=== PATIENT | female | born 1950 | race Caucasian/White ===

== ENCOUNTER → 2017-07-12 | Outpatient (CLI) | payer MEDICARE, MEDICAID ==
[~2017-07-12] MED LIST: BUTA-91; ESTROGEN; HCTZ; HYDR-1421; KCL; SOMA; XANEX
[2017-07-12 14:36] LABS: Basophils # (auto) 0 uL; Basophils % (auto) 0.9 % (0.0-2.0); Eosinophils # (auto) 0.1 uL; Hematocrit 41.1 % (36.0-46.0); Hemoglobin 13.7 g/dL (12.2-16.2); Lymphocytes # (auto) 2.3 uL; Lymphocytes % (auto) 42.7 % (10.0-50.0); Mean Corpuscular Hemoglobin 31.4 pg (28.0-32.0); Mean Corpuscular Hgb Conc. 33.3 g/dL (32.0-36.0); Mean Corpuscular Volume 94.3 fL (80.0-100.0); Monocytes # (auto) 0.4 uL; Neutrophils # (auto) 2.5 uL; Neutrophils % (auto) 46.4 % (37.0-80.0); Nucleated Red Blood Cells % 0.1 %; Platelet Count (auto) 246 10^3/uL (140-450); Red Blood Cells 4.35 10^6/uL (4.0-5.20); Red Cell Distribution Width 14.3 % (11.8-14.3); White Blood Cell 5.4 10^3/uL (4.4-10.8)
[2017-07-12 14:56] LABS: INR 0.92 (0.9-1.15); Partial Thromboplastin Time 25.4 sec (22.64-33.71)
[2017-07-12 15:02] LABS: Urine Bacteria NONE SEEN /hpf (None Seen); Urine Blood Negative /uL (Negative); Urine Mucus FEW (None Seen); Urine Specific Gravity 1.026 (1.001-1.035); Urine WBC 3 /hpf (0 - 5)
[2017-07-12 15:11] LABS: BUN/Creatinine Ratio 21.1; Bilirubin, Total 0.5 mg/dL (0.2-1.0); Calcium 9.2 mg/dL (8.5-10.1); Potassium 3.6 mmol/L (3.5-5.1); Total Protein 7.8 g/dL (6.4-8.2)
== END | disposition home or self-care (01) ==
LOC: LAB 13:20
PROVIDERS: ATTEND Orthopaedic Surgery
DX: S83.251A Bucket-handle tear of lateral meniscus, current injury, right knee, initial encounter (principal); Z79.01 Long term (current) use of anticoagulants; X58.XXXA Exposure to other specified factors, initial encounter; Y93.89 Activity, other specified; Y92.89 Other specified places as the place of occurrence of the external cause; Y99.8 Other external cause status
CPT/HCPCS: 36415; 80053; 81001; 85025; 85610; 85730

== ENCOUNTER 2019-01-24 12:20 | Day surgery (SDC) | payer MEDICARE, MEDICAID ==
[2019-01-21 11:19] LABS: Basophils # (auto) 0.1 uL; Basophils % (auto) 0.5 % (0.0-2.0); Eosinophils # (auto) 0 uL; Eosinophils % (auto) 0.2 % (0.0-7.0); Hematocrit 49.8 % (36.0-46.0); Hemoglobin 16.4 g/dL (12.2-16.2); Lymphocytes # (auto) 3.4 uL; Mean Corpuscular Hemoglobin 31.5 pg (28.0-32.0); Mean Corpuscular Volume 95.5 fL (80.0-100.0); Monocytes # (auto) 0.9 uL; Monocytes % (auto) 6.3 % (0.0-12.0); Neutrophils # (auto) 9.8 uL; Nucleated Red Blood Cells % 0.1 %; Platelet Count (auto) 279 10^3/uL (140-450); Red Blood Cells 5.21 10^6/uL (4.0-5.20); Red Cell Distribution Width 14.4 % (11.8-14.3); Urine Bacteria NONE SEEN /hpf (None Seen); Urine Blood Negative /uL (Negative); Urine Specific Gravity 1.007 (1.001-1.035); Urine WBC 9 /hpf (0 - 5); White Blood Cell 14.3 10^3/uL (4.4-10.8)
[2019-01-21 11:29] LABS: INR 0.87 (0.9-1.15); Partial Thromboplastin Time 20.9 sec (23.64-32.05)
[2019-01-21 11:34] LABS: Potassium 3.5 mmol/L (3.5-5.1)
[2019-01-21 11:48] LABS: BUN/Creatinine Ratio 10.8; Bilirubin, Total 0.5 mg/dL (0.2-1.0); Calcium 9.1 mg/dL (8.5-10.1); Total Protein 7.9 g/dL (6.4-8.2)
[~2019-01-24] VITALS: Ht 167.6 cm; Wt 74.8 kg
[~2019-01-24 12:20] MED LIST changes: -BUTA-91; +CARI350T22 PO; -ESTROGEN; -HCTZ; -HYDR-1421; +HYDR-531 PO; +HYDR12.56 PO; -KCL; +LEVO100T8 PO; +LIDO5DIS21 TOP; +MECL-87 PO; +MEDR10TA9 PO; +PANT40TA2 PO; +POTA20TA53 PO; +PRE5T PO; +RIZA10TA22 OR; +SIMV-8 PO; -SOMA; +TEMA30CA PO; +VITA1CAP15 PO; -XANEX
[2019-01-24] MEDS ORDERED: fentaNYL CITRATE 100 MCG/2 ML VL ONE (13:03)
[2019-01-24] MEDS ORDERED: BUPIVACAINE 0.25% INJ 50ML VIAL ONE ×2 (13:03→14:41)
[2019-01-24] MEDS ORDERED: HYDROCORTISONE SOD SUCC 100 MG/2ML INJ VIAL ONE (13:03)
[2019-01-24] MEDS ORDERED: LIDOCAINE HCL 2% TOP JELLY 5ML TOP ONE ×2 (13:03→14:08)
[2019-01-24] MEDS ORDERED: SODIUM CHLORIDE LOCK 10 ML ONE (13:03)
[2019-01-24] MEDS ORDERED: fentaNYL CITRATE 10 ML ONE (13:03)
[2019-01-24] MEDS ORDERED: MIDAZOLAM HCL 1MG/1ML-2 ML VIAL ONE (13:03)
[2019-01-24] MEDS ORDERED: LIDOCAINE 1% HCL (LOCAL ANESTH.) INJ 20ML MDV ONE (13:03)
[2019-01-24] MEDS ORDERED: ONDANSETRON HCL 4 MG/2 ML VIAL ONE (13:03)
[2019-01-24] MEDS ORDERED: PROPOFOL 10 MG/ML 20 ML IV ONE (13:03)
[2019-01-24] MEDS ORDERED: ROCURONIUM 10MG/ML 10ML VIAL IV ONE (13:03)
[2019-01-24] MEDS ORDERED: LIDOCAINE W/ EPINEPHRINE 1% 20ML VIAL ONE ×2 (13:05→14:41)
[2019-01-24] MEDS ORDERED: ceFAZolin 1GM/50ML 100 ML IV ONE (13:11)
[2019-01-24] MEDS ORDERED: HYDROmorphone HCL 2 MG/ML VL IV ONE (13:20)
[2019-01-24] MEDS ORDERED: ONDANSETRON HCL 4 MG/2 ML VIAL IV PRN (13:45)
[2019-01-24] MEDS ORDERED: GLYCOPYRROLATE 0.2 MG/ML 1ML VIAL ONE (14:07)
[2019-01-24] MEDS ORDERED: NEOSTIGMINE 1 MG/ML INJ (10mg/10ML VIAL) ONE (14:07)
[2019-01-24] MEDS ORDERED: CONJ ESTROGENS 0.625MG/GM VAG CRM 30GM PV ONE (14:28)
[2019-01-24] MEDS ORDERED: hydrALAZINE HCL 20 MG/ML VL ONE (15:08)
[2019-01-24] MEDS ORDERED: ACETAMINOPHEN IV 100 ML IV ONE (15:26)
[2019-01-24] MEDS ORDERED: ACETAMINOPHEN IV 1000 MG/100ML (10MG/ML) IV ONE (15:30)
[2019-01-24] MEDS ORDERED: METOCLOPRAMIDE HCL 5MG/ml INJ 2ml VIAL IV ONE (15:30)
[2019-01-24] MEDS: HYDROmorphone HCL 2 MG/ML VL IV PRN ×4 (15:35→16:17)
[2019-01-24 16:10] VITALS: BP 119/73
== END 2019-01-24 16:45 | disposition home or self-care (01) ==
LOC: SUR 12:20
PROVIDERS: ATTEND Obstetrics & Gynecology
DX: N81.11 Cystocele, midline (principal); N39.3 Stress incontinence (female) (male); N95.2 Postmenopausal atrophic vaginitis; D53.8 Other specified nutritional anemias; E78.5 Hyperlipidemia, unspecified; K21.9 Gastro-esophageal reflux disease without esophagitis; I97.3 Postprocedural hypertension; F41.9 Anxiety disorder, unspecified; F32.9 Major depressive disorder, single episode, unspecified; M79.7 Fibromyalgia; I12.9 Hypertensive chronic kidney disease with stage 1 through stage 4 chronic kidney disease, or unspecified chronic kidney disease; N18.3 Chronic kidney disease, stage 3 (moderate); G89.29 Other chronic pain; E03.9 Hypothyroidism, unspecified; F17.200 Nicotine dependence, unspecified, uncomplicated; Z88.1 Allergy status to other antibiotic agents; Z79.899 Other long term (current) drug therapy; Z90.710 Acquired absence of both cervix and uterus; Z98.890 Other specified postprocedural states; Z80.9 Family history of malignant neoplasm, unspecified; Z88.8 Allergy status to other drugs, medicaments and biological substances
CPT/HCPCS: 36415; 57240; 57288; 58660; 80053; 81001; 85025; 85610; 85730; 86850; 86900; 86901; 87086; 88305; 88342; C1763; J0131; J0360; J0690; J1170; J1720; J2250; J2405; J2704; J3010; J3490; J7030; J2001

== ENCOUNTER 2024-12-10 10:16 | Inpatient (IN) | payer MEDICARE, MEDICAID ==
[~2024-12-10] VITALS: Ht 165.1 cm; Wt 66.4 kg
[~2024-12-10 10:16] MED LIST changes: +ACET500T58 PO; +ALPR0.254 PO; -CARI350T22 PO; +CLON0.1T PO; +CYCL-839 PO; -HYDR12.56 PO; +HYDR25TA4 PO; +IBUP-1456 PO; -LEVO100T8 PO; -LIDO5DIS21 TOP; +MAGN400C3 PO; -MECL-87 PO; -MEDR10TA9 PO; +MULT1TAB95 PO; -PANT40TA2 PO; -POTA20TA53 PO; -PRE5T PO; +SEMA0.25 SC; -SIMV-8 PO; -TEMA30CA PO; +TRAZ-181 PO; -VITA1CAP15 PO
[2024-12-10] MEDS: ceFAZolin 2 GM/D5W50ml 50 ML IV ONE (10:18)
[2024-12-10] MEDS: TRANEXAMIC ACID 20 ML ONE (10:29)
[2024-12-10] MEDS: ACETAMINOPHEN IV 100 ML IV ONE (10:30)
[2024-12-10] MEDS: CEFEPIME 1GM/ 50ML 50 ML IV ONE (10:32)
[2024-12-10] MEDS: BUPIVACAINE W/ EPINEPH 0.5% MPF 30ML VIAL IJ ONE (10:40)
[2024-12-10] MEDS ORDERED: fentaNYL CITRATE 100 MCG/2 ML VL ONE ×2 (10:44→12:04)
[2024-12-10] MEDS ORDERED: PROPOFOL 10 MG/ML 20 ML IV ONE (10:45)
[2024-12-10] MEDS ORDERED: MIDAZOLAM HCL 2MG/2ML 2ml VIAL (1mg/ml) ONE (10:45)
[2024-12-10] MEDS ORDERED: MORPHINE SULF PF 5 MG/10 ML VIAL ONE (10:45)
[2024-12-10] MEDS ORDERED: ONDANSETRON HCL 4 MG/2 ML VIAL ONE (10:45)
[2024-12-10] MEDS ORDERED: LIDOCAINE 2% (LOCAL ANESTH.) PF 5ml SDV ONE (10:45)
[2024-12-10] MEDS ORDERED: HYDROmorphone HCL 2 MG/ML VL/or syr ONE ×2 (11:53→13:30)
[2024-12-10] MEDS ORDERED: KETAMINE 50mg/ML 1ml syringe ONE (12:51)
[2024-12-10] MEDS: VANCOMYCIN HCL 1000 MG VL ONE (12:51)
[2024-12-10] MEDS ORDERED: NEOSTIGMINE 1 MG/ML INJ (10mg/10ML VIAL) ONE (13:13)
[2024-12-10] MEDS ORDERED: GLYCOPYRROLATE 0.2 MG/ML 1ML VIAL ONE (13:13)
--- NOTE | 2024-12-10 13:16 | DVHOP2 ---
Operative Report - 2 Report Details Date: 12/10/24 Preop Diagnosis: Left knee degenerative arthritis Postop Diagnosis: Left knee degenerative arthritis Surgeon: Roxana De Los Santos MD Milk Vendor: Frances MANNING Anesthesiologist: Mallorie WATSON Anesthesia: General, Regional Drains: Alf closed wound suction Implant: DonJoy knee size six femur PS, size five tibial base plate, size 13 polyethylene, size 32 patella Consent: The patient was informed of the risks and benefits of the procedure. These include but are not limited to complications of anesthesia, postoperative infection, incomplete relief of symptoms, recurrence of symptoms, damage to blood vessels, nerves and tendons, deep venous thrombosis, pulmonary embolism and possible need for repeat surgery in the future. Complications: None Estimated Blood Loss: 50 cc Fluids: See anesthesia record Findings: Left knee denuded cartilage with eburnated bone, osteophytes, valgus deformity Indications for Surgery: Left knee degenerative arthritis with severe pain and functional impairment despite nonoperative management Name of Procedure Performed Left total knee arthroplasty Procedure Details Procedure Details: The patient was brought to the operating room and placed on the table in the supine position after being given spinal anesthetic with adequate analgesia obtained. Surgical timeout was performed verifying patient, laterality and procedure Preop patient received IV cefepime IV Ancef and IV tranexamic acid. Tourniquet was applied to the lower extremity. Extremity was elevated, exsanguinated Esmarch, and tourniquet inflated. Lower extremity was prepped and draped in sterile fashion. Midline incision was made followed by medial arthrotomy. I exposed the anterior medial and lateral tibial plateau and the anterior distal femur. Bovie and aqua mantis were used for hemostasis. I excised the anterior meniscal tissue with Bovie. I excised a portion of the fat pad with Bovie. The patella was everted and the knee flexed. I drilled the distal femur and suctioned the hole to reduce the risk of fat emboli. I inserted intramedullary guide with 6 degree valgus setting. I pinned the distal femoral cutting block anteriorly. Intramedullary geoffrey was removed. Distal femoral cut was made and the block removed. I brought my attention to the tibia setting up the external cutting jig for the tibia paying attention to slope, rotation and varus valgus alignment. I set the depth and pinned the block. I used the external alignment geoffrey to aid in checking alignment. Bone cut was made and bone removed releasing soft tissue attachments with Bovie. Cutting block removed. I then checked the extension gap and deemed adequate and removed the femur and tibia pins. I flexed the knee and applied the femoral sizing guide to the femur. I checked the size and external rotation setting at 90 degrees to Whitesides line and checking the epicondylar axis. I drilled the holes then removed the sizing guide and pin. I then tapped on the 4 in 1 cutting block and checked with the mariah wing anteriorly to make sure that I would not notch then pinned the block. Cuts were made and the block and pins were removed. Bone was removed with curved osteotome. I used a rongeur to remove any remaining osteophytes at the femur and tibia. I then used a lamina signal repairer to open up the back alternating between the medial and lateral side. Any remaining meniscal tissue was excised with scalpel. I used curved osteotome, curette and rongeur to remove any posterior osteophytes. I prophylactically coagulated with aqua mantis. I then tapped on the template for the box cut and pinned it. Box cut was made and bone removed. Template and pin removed. I then tapped on the femoral trial. I then brought my attention back to the tibia sizing it. I used the external alignment geoffrey to make sure that rotation and alignment were good. I made a Bovie virginie at the tibial tray virginie identifying rotation for later use. I tried various tibial polytrials. [I then brought my attention to the patella. I sequentially dissected soft tissue with Bovie. I checked the thickness with caliper. I set the appropriate depth of cut on the cutting guide. I attached the cutting guide made my cut. I then sized the patella and made my drill holes. I then placed the patella trial with appropriate depth based on overall precut thickness. ] The patella tracked nicely without thumb pressure. I removed the trials. I pinned the tray and used the reamer and keel punch. The implants were brought into the field while bone preparation was started. I used both normal saline irrigation to prepare the bone. Once cement was ready I applied cement to the tibial implant and tibial bone tapped it on and removed excess cement in usual fashion. In similar fashion I tapped on the femoral implant. I inserted the trial polyethylene and brought the knee into 30 degrees flexion. [I then applied the patella implant in similar fashion holding pressure with the pressurization device.] I irrigated with xperience i rrigant. Once cement cured, I checked stability and range of motion as well as patella tracking. tourniquet was released and hemostasis maintained with aqua mantis. I inserted the polyethylene and again checked stability. I used a 2 grams of vancomycin half of which was placed deep and half superficial. I repaired the extensor mechanism with the knee in flexion with #1 Ethibond interrupted [id number]. Deep subcutaneous tissue was closed with 0 Vicryl. Superficial subcutaneous tissue was closed with 2-0 vicryl interrupted. Skin was closed with mirella. I then applied the [alf closed wound suction]. Patient tolerated the procedure well and was brought to recovery room in stable condition. Condition Stable Disposition Still a Patient ROXANA DE LOS SANTOS MD Dec 10, 2024 13:16
[2024-12-10 13:26] VITALS: O2SAT 100
[2024-12-10] MEDS ORDERED: RIZATRIPTAN BENZOATE 10 MG SL PRN (13:30)
[2024-12-10] MEDS ORDERED: D5W/LACTATED RINGERS 1,000 ML IV SCH (13:30)
[2024-12-10] MEDS ORDERED: ACETAMINOPHEN 325 MG TAB PO PRN (13:30)
[2024-12-10] MEDS: oxyCODONE HCL 5MG TAB PO PRN ×2 (13:45→18:29)
[2024-12-10] MEDS: ceFAZolin 2 GM/D5W50ml 50 ML IV SCH (14:00)
[2024-12-10] MEDS ORDERED: hydrALAZINE HCL 20 MG/ML VL IV PRN (14:00)
[2024-12-10] MEDS ORDERED: HYDROmorphone HCL 2 MG/ML VL/or syr IV PRN (14:00)
[2024-12-10] MEDS: ONDANSETRON HCL 4 MG/2 ML VIAL IV ONE (14:00)
[2024-12-10] MEDS: FLUMAZENIL 0.1 MG/ML INJ 10ML MDV IV ONE (14:00)
[2024-12-10] MEDS ORDERED: NALOXONE HCL 0.4 MG/ML VIAL IV PRN (14:00)
--- NOTE | 2024-12-10 14:00 | DVH ---
EXAM: XY L KNEE 3V XRAY CLINICAL HISTORY: Postop COMPARISON: None TECHNIQUE: XY L KNEE 3V XRAY Findings/Impression: 3 views of the left knee. There is no evidence of an acute fracture, dislocation, blastic, or lytic lesions. Left total knee arthroplasty with postsurgical changes.
[2024-12-10 17:02] VITALS: BP 168/81; PULSE 75; RESP 18; TEMP 97.9; O2SAT 98
[2024-12-10] MEDS ORDERED: ALPRAZolam 0.25 MG TAB PO PRN (17:30)
[2024-12-10] MEDS ORDERED: cloNIDine HCL 0.1 MG TAB PO PRN (17:30)
--- NOTE | 2024-12-10 17:30 | DVHINCON2 ---
Date Seen: Dec 10, [address] DE LOS SANTOS Family History: Family history: Depression (situation) G8 MOTHER G8 FATHER Allergies: Coded Allergies: Atorvastatin (Unverified Allergy, Intermediate, N/V, Hives , 12/09/24) Erythromycin (Verified Allergy, Intermediate, Hives, N/V, 12/09/24) Lisinopril (Unverified Allergy, Intermediate, N/V, Hives , 12/09/24) Home Meds Reported Medications Semaglutide (Wegovy) Unknown Strength Inj, SC, INJ 12/09/24 Acetaminophen (Acetaminophen) 500 Mg Tab, 500 MG PO BID, TAB 12/09/24 Magnesium Oxide (Mg Supplement (MAGNESIUM) 400 Mg Cap, 500 MG PO BID, CAP 12/09/24 Ibuprofen (Ibuprofen) 800 Mg Tab, 800 MG PO DAILY, MG 12/09/24 Alprazolam (Alprazolam) Unknown Strength Tab, PO PRN, #90 TAB 12/09/24 Multiple Vitamin (Multi Vitamin) 1 Tab Tab, 1 TAB PO DAILY, TAB 12/09/24 Cyclobenzaprine Hcl (Cyclobenzaprine Hcl) Unknown Strength Tab, PO Q8HP for 30 Days, MG 12/09/24 Clonidine Hydrochloride (Clonidine Hcl) 0.1 Mg Tab, 0.25 MG PO QID for 30 Days, MG 12/09/24 Trazodone HCl (Trazodone Hydrochloride) 50 Mg Tab, 50 MG PO HS, TAB 12/09/24 Hydrochlorothiazide (Hydrochlorothiazide) 25 Mg Tab, 1 TAB PO DAILY, #30 TAB 5 Refills 12/09/24 Rizatriptan Benzoate (RIZATRIPTAN BENZOATE) 10 Mg Tab, 10 MG OR PRN PRN for FOR HEADACHE, TAB 01/21/19 Hydrocodone-Acetaminophen ([place] 10-325 mg) 1 Tab Tab, 1 TAB PO QID, TAB 01/21/19 Discontinued Reported Medications Hydrochlorothiazide (Hydrochlorothiazide) 12.5 Mg Cap, 12.5 MG PO DAILY for 30 Days, MG 01/21/19 Current Medications Current Medications Medications (Trade) Dose Ordered Sig/Frank Route PRN Reason Start Time Stop Time Status Last Admin Clonidine HCl (Catapres Tablet) 0.25 mg QID PO 12/10/24 18:00 Hydrochlorothiazide (hydroCHLOROthiazide TABLET) 25 mg DAILY PO 12/11/24 10:00 Trazodone HCl (Desyrel) 50 mg HS PO 12/10/24 22:00 Patient Own Medication 10 mg PRN PRN SL FOR HEADACHE 12/10/24 13:30 Dextrose/Lactated Ringer's 1,000 ml @ 100 mls/hr Q10H IV 12/10/24 13:30 Acetaminophen (Tylenol Tablet) 650 mg Q4HP PRN PO MILD PAIN (1-3 PAIN SCALE) 12/10/24 13:30 Cefazolin Sodium/ Dextrose 50 ml @ 50 mls/hr Q8HR IV 12/10/24 14:00 12/10/24 22:59 Acetaminophen (Tylenol Tablet) 650 mg Q6HR PO 12/10/24 18:00 Ketorolac Tromethamine (Toradol Injection) 15 mg Q6HR IV 12/10/24 18:00 12/15/24 17:59 Pregabalin (Lyrica Capsule) 50 mg BID PO 12/10/24 22:00 Oxycodone HCl 5 mg Q4HP PRN PO MODERATE PAIN (4-6 PAIN SCALE) 12/10/24 13:30 Oxycodone HCl 10 mg Q4HP PRN PO SEVERE PAIN (7-10 PAIN SCALE) 12/10/24 13:30 12/10/24 13:45 Aspirin 81 mg BID PO 12/11/24 10:00 Naloxone HCl (Narcan) 0.4 mg Q10M PRN IV NARCOTIC REVERSAL 12/10/24 14:00 12/10/24 14:24 DC Hydralazine HCl (Apresoline Injection) 5 mg Q10M PRN IV SBP>160 12/10/24 14:00 12/10/24 14:51 DC Hydromorphone HCl (Dilaudid Injection) 0.5 mg Q10M PRN IV SEVERE PAIN (7-10 PAIN SCALE) 12/10/24 14:00 12/10/24 18:00 Vital Signs Vital Signs Date Time Temp Pulse Resp B/P (MAP) Pulse Ox O2 Delivery O2 Flow Rate FiO2 12/10/24 17:02 97.9 75 18 168/81 (110) 98 97.9 12/10/24 13:26 Mask 10.0 100 Assessment SEE DICTATED NOTE Plan discussed with: Patient Date of Service: Dec 10, 2024 Billing Provider: ESME CORREA MD Common Visit Codes: [id number] INP/OBS CARE (HIGH) ESME CORREA MD Dec 10, 2024 17:30
--- NOTE | 2024-12-10 17:51 | DVHINCON2 ---
DATE OF CONSULTATION: 12/10/2024 INTERNAL MEDICINE CONSULT HISTORY OF PRESENT ILLNESS: The patient is a 74-year-old lady who was admitted after she underwent surgery on the left knee for DJD of the knee. The patient currently complains of pain in the back. No chest pain or shortness of breath. No nausea or vomiting. REVIEW OF SYSTEMS: Review of rest of systems are otherwise currently negative. PAST MEDICAL HISTORY: Significant for recent surgery on the back. The patient also has history of hypertension, anxiety and chronic pain. MEDICATIONS: Include Xanax, clonidine, Wegovy, trazodone. ALLERGIES: LISINOPRIL, ERYTHROMYCIN AND LIPITOR. SOCIAL HISTORY: Denies smoking or alcohol. FAMILY HISTORY: Negative. PHYSICAL EXAMINATION: GENERAL: The patient is awake, alert. VITAL SIGNS: Temperature of 97.9, pulse 75 per minute, blood pressure 150/72. SHEENT: Unremarkable. NECK: There is no JVD, no pedal edema. LUNGS: Equal bilaterally. No added sounds. CARDIOVASCULAR: S1, S2 is regular, no murmurs. ABDOMEN: Soft. There is no organomegaly. NEUROLOGIC: Nonfocal. MUSCULOSKELETAL: The left knee is currently in a dressing. ASSESSMENT AND PLAN: * Hypertension, for which the patient will continue hydrochlorothiazide and be placed on as needed clonidine. * Anxiety. * Status post back surgery. * Status post left knee surgery for degenerative joint disease of the knee, for which she will be placed on pain medication and receive physical therapy. MD GEORGIA Morfin/TRACY TID: [id number] RECEIPT: [id number]
[2024-12-10] MEDS: ACETAMINOPHEN 325 MG TAB PO SCH (18:00)
[2024-12-10] MEDS ORDERED: cloNIDine HCL 0.1 MG TAB PO SCH (18:00)
[2024-12-10] MEDS: KETOROLAC TROMETH 30 MG/ML 1ML VIAL IV SCH (18:00)
[2024-12-10] MEDS: D5W/LACTATED RINGERS 1,000 ML IV SCH (18:34)
[2024-12-10 20:00] VITALS: PULSE 93; RESP 17; O2SAT 96
[2024-12-10 21:00] VITALS: BP 121/92; PULSE 93; RESP 17; TEMP 98.4; O2SAT 96
[2024-12-10] MEDS: traZODone HCL 50 MG TAB PO SCH (21:39)
[2024-12-10] MEDS: PREGABALIN 25 MG CAP PO SCH (21:56)
[2024-12-11 01:00] VITALS: BP 143/81; PULSE 84; RESP 17; TEMP 98; O2SAT 98
[2024-12-11 05:00] VITALS: BP 120/79; PULSE 79; RESP 16; TEMP 97.9; O2SAT 96
[2024-12-11 07:19] LABS: Basophils # (auto) 0 10 ^3/uL (0-0.2); Basophils % (auto) 0.3 % (0.0-2.0); Eosinophils # (auto) 0 10 ^3/uL (0-0.8); Eosinophils % (auto) 0.2 % (0.0-7.0); Hematocrit 33.4 % (36.0-46.0); Hemoglobin 11.4 g/dL (12.2-16.2); Lymphocytes # (auto) 1.3 10 ^3/uL (0.4-5.4); Lymphocytes % (auto) 16.4 % (10.0-50.0); Mean Corpuscular Hemoglobin 31.2 pg (28.0-32.0); Mean Corpuscular Hgb Conc. 34.2 g/dL (32.0-36.0); Mean Corpuscular Volume 91.2 fL (80.0-100.0); Monocytes # (auto) 0.9 10 ^3/uL (0-1.3); Monocytes % (auto) 12.1 % (0.0-12.0); Neutrophils # (auto) 5.5 10 ^3/uL (1.6-8.6); Platelet Count (auto) 226 10^3/uL (140-450); Red Blood Cells 3.66 10^6/uL (4.0-5.20); Red Cell Distribution Width 13.9 % (11.8-14.3); White Blood Cell 7.8 10^3/uL (4.4-10.8)
[2024-12-11 07:36] LABS: Alanine Aminotransferase 16 U/L (7-40); Alkaline Phosphatase 74 U/L (46-116); Anion Gap 9 (5-15); BUN/Creatinine Ratio 13.1 (10.0-20.0); Blood Urea Nitrogen 13 mg/dL (9-23); Calcium 9.2 mg/dL (8.7-10.4); Carbon Dioxide 27 mmol/L (20-31); Chloride 98 mmol/L (98-107); Total Protein 5.8 g/dL (5.7-8.2)
[2024-12-11 07:37] LABS: Albumin 3.6 g/dL (3.2-4.8)
[2024-12-11 07:38] LABS: Aspartate Aminotransferase 19 U/L (13-40); Bilirubin, Total 0.5 mg/dL (0.2-1.0)
[2024-12-11 07:41] LABS: Glucose 132 mg/dL (74-106); Sodium 134 mmol/L (136-145)
[2024-12-11 08:00] VITALS: PULSE 75; RESP 16; O2SAT 99
[2024-12-11 08:55] VITALS: BP 125/76; PULSE 75; RESP 16; TEMP 98; O2SAT 99
[2024-12-11] MEDS: hydroCHLOROthiazide 25 MG TAB PO SCH (10:27)
[2024-12-11] MEDS: ASPirin 81 mg TAB PO SCH (10:27)
--- NOTE | 2024-12-11 11:10 | DVHPN2 ---
Progress Note Date Seen: Dec 11, 2024 Medical Necessity Reason Pt with a Central, PICC or Fol: No Subjective Patient reports: No new complaints Review of Systems: HEENT:Normal, CVS:Normal, RESPIRATORY:Normal, GI:Normal, :Normal, MSK:Normal, NEURO:Normal Objective vital signs Vital Sign Date Time Temp Pulse Resp B/P (MAP) Pulse Ox O2 Delivery O2 Flow Rate FiO2 12/11/24 10:27 125/76 12/11/24 08:55 98.0 75 16 99 98.0 12/11/24 08:00 Room Air* 0 21 Total Intake and Output 12/10/24 12/10/24 12/11/24 15:00 23:00 07:00 Intake Total 25 ml 625 ml Balance 25 ml 625 ml medications Current Medications Medications Dose Ordered Sig/Frank Route Start Time Stop Time Status Last Admin Dose Admin Hydrochlorothiazide 25 mg DAILY PO 12/11/24 10:00 12/11/24 10:27 25 MG Trazodone HCl 50 mg HS PO 12/10/24 22:00 12/10/24 21:39 50 MG Acetaminophen 650 mg Q4HP PRN PO 12/10/24 13:30 Acetaminophen 650 mg Q6HR PO 12/10/24 18:00 12/11/24 05:29 650 MG Ketorolac Tromethamine 15 mg Q6HR IV 12/10/24 18:00 12/15/24 17:59 12/11/24 05:30 15 MG Pregabalin 50 mg BID PO 12/10/24 22:00 12/11/24 10:27 50 MG Oxycodone HCl 5 mg Q4HP PRN PO 12/10/24 13:30 Oxycodone HCl 10 mg Q4HP PRN PO 12/10/24 13:30 12/10/24 18:32 10 MG Aspirin 81 mg BID PO 12/11/24 10:00 12/11/24 10:27 81 MG Dextrose/Lactated Ringer's 1,000 ml @ 75 mls/hr [id number] IV 12/10/24 17:30 12/11/24 06:14 75 MLS/HR Clonidine HCl 0.1 mg Q6HP PRN PO 12/10/24 17:30 Alprazolam 0.25 mg Q8HP PRN PO 12/10/24 17:30 Examination: GENERAL:Normal, HEENT:Normal, NECK:Normal, LUNGS:Normal, CVS:Normal, ABDOMEN:Normal, MSK:Normal, MSK:Abnormal (left knee dressing), SKIN:Normal, NEURO:Normal, :Normal laboratory and microbiology Laboratory Tests 12/11/24 04:41 Test 12/11/24 04:41 Range/Units Serum Glucose 132 H 74-106 mg/dL Problem List/Assessment/Plan Problem List/Assessment/Plan * Hypertension, for which the patient will continue hydrochlorothiazide and be placed on as needed clonidine. * Anxiety. * Status post back surgery. * Status post left knee surgery for degenerative joint disease of the knee, for which she will be placed on pain medication and receive physical therapy. advance care planning- full code- time spent 18 mins Plan discussed with: Patient My Orders My Orders Orders - ESME CORREA MD Procedure Category Date Status Time D5w/Lactated Ringers PHA 12/10/24 In Process (D5wlr) 17:30 Clonidine Hcl Tablet PHA 12/10/24 In Process (Catapres Tablet) 17:30 Alprazolam Tablet PHA 12/10/24 In Process (Xanax Tablet) 17:30 2 Gm Sodium Diet DIET 12/10/24 Transmitted Dinner Date of Service: Dec 11, 2024 Billing Provider: ESME CORREA MD Common Visit Codes: [id number] INP/OBS CARE(HIGH) Secondary Visit Codes: [id number] CARE PLAN 30 MINUTES ESME CORREA MD Dec 11, 2024 11:10
[2024-12-11 12:55] VITALS: BP 134/75; PULSE 86; RESP 16; TEMP 98.2; O2SAT 96
--- NOTE | 2024-12-11 13:35 | DVHPN2 ---
Progress Note - Dictate Date Seen: Dec 11, 2024 Medical Necessity Reason Pt with a Central, PICC or Fol: No Subjective Patient was lying comfortably in bed during my evaluation and reports some postoperative knee pain that has been well managed with the help of pain medication. Patient reports that she was able to get up and walk with the help physical therapy and/or walker and was able to get down the hole to the nurses station and back to her room with a some postoperative knee pain. Patient is otherwise feeling well denying any other complaint or concern during my evaluation and would like to go home. vital signs Vital Sign Date Time Temp Pulse Resp B/P (MAP) Pulse Ox O2 Delivery O2 Flow Rate FiO2 12/11/24 10:27 125/76 12/11/24 08:55 98.0 75 16 99 98.0 12/11/24 08:00 Room Air* 0 21 Total Intake and Output 12/10/24 12/10/24 12/11/24 15:00 23:00 07:00 Intake Total 25 ml 625 ml Balance 25 ml 625 ml medications Current Medications Medications Dose Ordered Sig/Frank Route Start Time Stop Time Status Last Admin Dose Admin Hydrochlorothiazide 25 mg DAILY PO 12/11/24 10:00 12/11/24 10:27 25 MG Trazodone HCl 50 mg HS PO 12/10/24 22:00 12/10/24 21:39 50 MG Acetaminophen 650 mg Q4HP PRN PO 12/10/24 13:30 Acetaminophen 650 mg Q6HR PO 12/10/24 18:00 12/11/24 12:51 650 MG Ketorolac Tromethamine 15 mg Q6HR IV 12/10/24 18:00 12/15/24 17:59 12/11/24 12:51 15 MG Pregabalin 50 mg BID PO 12/10/24 22:00 12/11/24 10:27 50 MG Oxycodone HCl 5 mg Q4HP PRN PO 12/10/24 13:30 Oxycodone HCl 10 mg Q4HP PRN PO 12/10/24 13:30 12/10/24 18:32 10 MG Aspirin 81 mg BID PO 12/11/24 10:00 12/11/24 10:27 81 MG Dextrose/Lactated Ringer's 1,000 ml @ 75 mls/hr [id number] IV 12/10/24 17:30 12/11/24 06:14 75 MLS/HR Clonidine HCl 0.1 mg Q6HP PRN PO 12/10/24 17:30 Alprazolam 0.25 mg Q8HP PRN PO 12/10/24 17:30 objective A&O x4 no acute distress Knee range of motion grossly limited with pain on movement Marry dressing clean, dry, intact, and maintaining suction No calf tenderness to palpation or lower extremity edema Neurovascularly intact with cap refill less than 2 seconds laboratory and microbiology Laboratory Tests 12/11/24 04:41 Test 12/11/24 04:41 Range/Units Serum Glucose 132 H 74-106 mg/dL Assessment/Plan Patient to be discharged home and advised to remain weight-bearing as tolerated with the assistance of a walker and to follow up with our office in 10-14 days for her 1st postoperative evaluation. Advised patient to maintain her dressings clean, dry, intact, maintaining suctioned to call our office if she has any questions or concerns. Rx sent via our outpatient EMR system. She understood and agreed Plan discussed with: Patient ISAC MASCORRO Dec 11, 2024 13:35
--- NOTE | 2024-12-11 13:39 | DVHDS2 ---
Discharge Summary Date of Admission Dec 10, 2024 at 13:22 Date of Discharge: Dec 11, 2024 Labs/Diagnostic Data: Laboratory Results Test 12/11/24 04:41 White Blood Count 7.8 10^3/uL (4.4-10.8) Red Blood Count 3.66 10^6/uL (4.0-5.20) Hemoglobin 11.4 g/dL (12.2-16.2) Hematocrit 33.4 % (36.0-46.0) Mean Corpuscular Volume 91.2 fL (80.0-100.0) Mean Corpuscular Hemoglobin 31.2 pg (28.0-32.0) Mean Corpuscular Hemoglobin Concent 34.2 g/dL (32.0-36.0) Red Cell Distribution Width 13.9 % (11.8-14.3) Platelet Count 226 10^3/uL (140-450) Mean Platelet Volume 9.7 fL (6.9-10.8) Neutrophils (%) (Auto) 71.0 % (37.0-80.0) Lymphocytes (%) (Auto) 16.4 % (10.0-50.0) Monocytes (%) (Auto) 12.1 % (0.0-12.0) Eosinophils (%) (Auto) 0.2 % (0.0-7.0) Basophils (%) (Auto) 0.3 % (0.0-2.0) Neutrophils # (Auto) 5.5 10 ^3/uL (1.6-8.6) Lymphocytes # (Auto) 1.3 10 ^3/uL (0.4-5.4) Monocytes # (Auto) 0.9 10 ^3/uL (0-1.3) Eosinophils # (Auto) 0 10 ^3/uL (0-0.8) Basophils # (Auto) 0 10 ^3/uL (0-0.2) Nucleated Red Blood Cells 0.0 % Sodium Level 134 mmol/L (136-145) Potassium Level 4.0 mmol/L (3.5-5.1) Chloride Level 98 mmol/L (98-107) Carbon Dioxide Level 27 mmol/L (20-31) Anion Gap 9 (5-15) Blood Urea Nitrogen 13 mg/dL (9-23) Creatinine 0.99 mg/dL (0.550-1.02) Glomerular Filtration Rate Calc 60 mL/min (>90) BUN/Creatinine Ratio 13.1 (10.0-20.0) Serum Glucose 132 mg/dL (74-106) Calcium Level 9.2 mg/dL (8.7-10.4) Total Bilirubin 0.5 mg/dL (0.2-1.0) Aspartate Amino Transferase (AST) 19 U/L (13-40) Alanine Aminotransferase (ALT) 16 U/L (7-40) Alkaline Phosphatase 74 U/L (46-116) Total Protein 5.8 g/dL (5.7-8.2) Albumin 3.6 g/dL (3.2-4.8) Other Laboratory Tests 12/11/24 04:41 Brief Hx & Hospital Course: Patient was brought to the hospital yesterday to undergo a total knee arthroplasty. She tolerated the procedure well without complications and was kept overnight for postoperative observation. She has remained medically stable denying any overnight events and reports some postoperative knee pain that has been well managed with the hole with pain medication. Patient reports that she was able to get up and walk with the help of physical therapy and her walker and was able to get down the mcdonnell and back to the her bed with minimal pain. Patient is otherwise feeling well denying any other complaint or concern during my evaluation and would like to go home. Condition at Discharge: Stable Final Diagnosis/Problems List Left knee degenerative arthritis Discharge Disposition: Home Discharge Instruct/Medications Diet: Regular Activity: See Comment Activity comment: Weight-bearing as tolerated with the assistance of a walker Follow Up/Referral: Patient to follow up with our office in 10-14 days for her 1st postoperative evaluation Medications: Rx sent via our outpatient EMR system Discharge Statement: "Patient was advised to return to the ER or call 911 if any headaches, dizziness, shortness of breath, chest pain, abdominal pain, bleeding, fevers, or worsening of medical condition. Patient was counseled about treatment plan, medications, possible side effects, patientverbalized understanding. All questions were answered to the best of my ability. This discharge took greater then 30 minutes in planning, reviewing documentation, counseling the patient, and discussing with other team members." ASSESSMENT ASSESSMENT Assessment Left knee degenerative arthritis ISAC MASCORRO Dec 11, 2024 13:39
== END 2024-12-11 15:50 | disposition home or self-care (01) | DRG 470 ==
LOC: SUR 10:16 → OVERFLOW 13:22 → WEST WING 16:22
PROVIDERS: ADMIT Internal Medicine; ATTEND Internal Medicine
PROC: 0SRD0J9 Replacement of Left Knee Joint with Synthetic Substitute, Cemented, Open Approach (ICD-10-PCS; principal; 2024-12-10 11:14)
DX: M17.12 Unilateral primary osteoarthritis, left knee (principal); G89.29 Other chronic pain; F41.9 Anxiety disorder, unspecified; I10 Essential (primary) hypertension; M21.00 Valgus deformity, not elsewhere classified, unspecified site; Z88.8 Allergy status to other drugs, medicaments and biological substances; Z79.899 Other long term (current) drug therapy; Z79.1 Long term (current) use of non-steroidal anti-inflammatories (NSAID); Z79.891 Long term (current) use of opiate analgesic; Z81.8 Family history of other mental and behavioral disorders
CPT/HCPCS: 36415; 73562; 80053; 85025; 86850; 86900; 86901; 97116; 97163; 97530; G0378; J0131; J1885; J2003; J2250; J2405; J2704